=== PATIENT | male | born 1980 | race Caucasian/White ===

== ENCOUNTER 2018-04-02 03:24 | Day surgery (SDC) | payer SELFPAY ==
[2018-04-02] MEDS ORDERED: Lactated Ringers 1,000 ML IV SCH ×3 (04:15→06:45)
[2018-04-02] MEDS: cefOXitin 2 GM in Premix Bag 1 BAG IV ONE ×2 (04:20→04:44)
--- NOTE | 2018-04-02 04:34 | PCM.SN ---
- Free Text/Narrative Note: pt seen, chart reviewed; appendicitis, to surgery, rb dw pt re bleeding/ infection/damage to nearby organs/postop course; pt concurred and proceed; [id number]
[2018-04-02] MEDS ORDERED: diphenhydrAMINE 50 MG/ML SDV ONE (04:37)
[2018-04-02] MEDS ORDERED: Dexamethasone 4 MG/ML 5 ML MDV ONE (04:38)
[2018-04-02] MEDS ORDERED: Ondansetron 4 MG/2 ML SDV ONE (04:38)
[2018-04-02] MEDS ORDERED: Phenylephrine 1% 10 MG/ML SDV ONE (04:38)
[2018-04-02] MEDS ORDERED: Propofol 200 MG/20 ML SDV ONE (04:38)
[2018-04-02] MEDS ORDERED: fentaNYL 250 MCG/5 ML SDV ONE (04:38)
[2018-04-02] MEDS ORDERED: Midazolam 1 MG/ML 2 ML SDV ONE (04:38)
[2018-04-02] MEDS ORDERED: Sodium Chloride 0.9% 20 ML ONE (04:39)
[2018-04-02] MEDS ORDERED: ceFAZolin 1 GM Vial ONE ×2 (04:39)
[2018-04-02] MEDS ORDERED: Rocuronium 10 MG/ML 10 ML Syringe ONE (04:40)
[2018-04-02] MEDS ORDERED: Bupivacaine 0.25%/EPINEPHrine 1:200,000 10 ML SDV ONE ×2 (04:44→04:46)
[2018-04-02] MEDS ORDERED: HYDROmorphone 2 MG/ML SDV IVPUSH PRN (05:48)
--- NOTE | 2018-04-02 05:48 | PCM.PREANE ---
Preanesthetic Assessment - Procedure Proposed Procedure: for lap appy - Anesthesia/Transfusion/Family Hx Anesthesia History: No Prior Anesthesia Family History of Anesthesia Reaction: No - Review of Systems General: No Symptoms, Fatigue (on alex per ) Pulmonary: No Symptoms (smokes 1=2 ppd), Other (snores==n) Cardiovascular: No Symptoms Gastrointestinal: No Symptoms Neurological: No Symptoms - Physical Assessment NPO Status Date: 04/01/18 NPO Status Time: 18:00 (water at 0130) Pulse: 95 O2 Sat by Pulse Oximetry: 95 Respiratory Rate: 17 Blood Pressure: 116/71 Vital Signs: Last Vital Signs Temp 36.2 C 04/02/18 03:31 Pulse 76 04/02/18 04:32 Resp 17 04/02/18 04:32 BP 122/80 04/02/18 04:32 Pulse Ox 97 04/02/18 04:32 Height: 1.83 m Weight: 104.326 kg ASA Class: 2E Mental Status: Alert & Oriented x3 Airway Class: Mallampati = 2 Dentition: Reports: Normal Dentition Thyro-Mental Finger Breadths: 2 Mouth Opening Finger Breadths: 3 (well trimmed estrella) ROM/Head Extension: Full Lungs: Clear to Auscultation, Normal Respiratory Effort Cardiovascular: Regular Rate, Regular Rhythm - Allergies Allergies/Adverse Reactions: Allergies Allergy/AdvReac Type Severity Reaction Status Date / Time No Known Allergies Allergy Verified 04/02/18 03:31 - Blood Blood Available: No - Anesthesia Plan Pre-Op Medication Ordered: None - Acknowledgements Anesthesia Type Planned: General Anesthesia (ga discussed with patient and . All questionsn answerwed.consent signed) Pt an Appropriate Candidate for the Planned Anesthesia: Yes Alternatives and Risks of Anesthesia Discussed w Pt/Guardian: Yes Pt/Guardian Understands and Agrees with Anesthesia Plan: Yes PreAnesthesia Questionnaire HEENT History: Reports: None Cardiovascular History: Reports: None Respiratory History: Reports: None Gastrointestinal History: Reports: None Genitourinary History: Reports: None Musculoskeletal History: Reports: None Neurological History: Reports: None Psychiatric History: Reports: None Endocrine/Metabolic History: Reports: None Hematologic History: Reports: None Immunologic History: Reports: None Oncologic (Cancer) History: Reports: None Dermatologic History: Reports: None - Infectious Disease History Infectious Disease History: Reports: None - Past Surgical History Head Surgeries/Procedures: Reports: None - SUBSTANCE USE Smoking Status *Q: Current Every Day Smoker Recreational Drug Use History: Yes Recreational Drug Type: Reports: Marijuana/Hashish - HOME MEDS Home Medications: Home Meds . [No Known Home Meds] 04/02/18 [History] - CURRENT (IN HOUSE) MEDS Current Meds: Current Medications Lactated Ringer's (Ringers, Lactated) 1,000 mls @ 150 mls/hr IV ASDIRECTED [facility] Last Admin: 04/02/18 04:20 Dose: 150 mls/hr Discontinued Medications Bupivacaine HCl/Epinephrine Bitart (Marcaine 0.25%/Epinephrine 1:200,000) Confirm Administered Dose 10 ml .ROUTE .STK-MED ONE Stop: 04/02/18 04:45 Bupivacaine HCl/Epinephrine Bitart (Marcaine 0.25%/Epinephrine 1:200,000) Confirm Administered Dose 10 ml .ROUTE .STK-MED ONE Stop: 04/02/18 04:47 Cefazolin Sodium (Ancef) Confirm Administered Dose 1 gm .ROUTE .STK-MED ONE Stop: 04/02/18 04:40 Cefazolin Sodium (Ancef) Confirm Administered Dose 1 gm .ROUTE .STK-MED ONE Stop: 04/02/18 04:40 Dexamethasone (Dexamethasone) Confirm Administered Dose 20 mg .ROUTE .STK-MED ONE Stop: 04/02/18 04:39 Diphenhydramine HCl (Benadryl) Confirm Administered Dose 50 mg .ROUTE .STK-MED ONE Stop: 04/02/18 04:38 Fentanyl (Sublimaze) Confirm Administered Dose 250 mcg .ROUTE .STK-MED ONE Stop: 04/02/18 04:39 Cefoxitin Sodium 2 gm/ Premix 50 mls @ 100 mls/hr IV ONETIME ONE Stop: 04/02/18 04:36 Last Admin: 04/02/18 04:44 Dose: 100 mls/hr Lidocaine HCl (Xylocaine-Mpf 1%) Confirm Administered Dose 5 mls @ as directed .ROUTE .STK-MED ONE Stop: 04/02/18 04:38 Sodium Chloride (Normal Saline) Confirm Administered Dose 20 mls @ as directed .ROUTE .STK-MED ONE Stop: 04/02/18 04:40 Midazolam HCl (Versed 1 Mg/Ml) Confirm Administered Dose 2 mg .ROUTE .STK-MED ONE Stop: 04/02/18 04:39 Ondansetron HCl (Zofran) Confirm Administered Dose 4 mg .ROUTE .STK-MED ONE Stop: 04/02/18 04:39 Phenylephrine HCl (Adonay-Synephrine) Confirm Administered Dose 10 mg .ROUTE .STK- MED ONE Stop: 04/02/18 04:39 Propofol (Diprivan 20 Ml) Confirm Administered Dose 200 mg .ROUTE .STK-MED ONE Stop: 04/02/18 04:39 Rocuronium [place] (Zemuron) Confirm Administered Dose 100 mg .ROUTE .STK-MED ONE Stop: 04/02/18 04:41
[2018-04-02] MEDS ORDERED: Ondansetron 4 MG/2 ML SDV IVPUSH SCH (06:00)
[2018-04-02] MEDS ORDERED: Meperidine PF 25 MG/ML Syringe IVPUSH SCH (06:00)
--- NOTE | 2018-04-02 06:30 | PCM.OPNOTE ---
- General Post-Op/Procedure Note Date of Surgery/Procedure: 04/02/18 Operative Procedure(s): 1) lap appendectomy. 2) biopsy extra lumen r colon tissues Findings: appendix is very dilated, close to 10 mm, induration, hyperemic, with appendicolith, cw acute appendicitis, gross perf not observed; [id number] Pre Op Diagnosis: acute appendicitis Post-Op Diagnosis: Same Anesthesia Technique: General ET Tube Primary Surgeon: Case Levine Pathology: 1) extra lumen r colon tissue 2) appendix Complications: None Condition: Fair Free Text/Narrative:: Intake & Output 04/01/18 04/01/18 04/02/18 14:59 22:59 06:59 Output Total 150 Balance -150
[2018-04-02] MEDS ORDERED: Acetaminophen/oxyCODONE 325-5 MG Tab PO PRN (06:33)
[2018-04-02] MEDS ORDERED: Morphine 2 MG/ML Syringe IVPUSH PRN (06:33)
[2018-04-02] MEDS ORDERED: Ondansetron 4 MG/2 ML SDV IVPUSH PRN (06:33)
--- NOTE | 2018-04-02 06:41 | HP ---
DATE OF : 1980 PRIMARY CARE PHYSICIAN: None PCP This is a transfer from [place], Kimo is the provider who called and asked for transfer for acute appendicitis. HISTORY OF PRESENT ILLNESS: The patient is a 38-year-old gentleman, complaining of a 12-hour history of acute onset of periumbilical pain, subsequently migrated to the right lower quadrant. Pain intensified and he sought help in the emergency room at [facility] and got a CAT scan. CAT scan shows a mildly dilated appendix, and the radiologist did not call it appendicitis, and this information is not volunteered by the Kimo of the [facility] who asked for transfer because of acute appendicitis. The patient denied prior episode. Denied nausea, vomiting, fever, chills, or diarrhea, and the pain is in the right lower quadrant. PAST MEDICAL HISTORY: Denied diabetic, NM, CVA, hypertension. PAST SURGICAL HISTORY: None. ALLERGIES: Please refer to nursing for details. MEDICATION: Please refer to nursing for details. FAMILY HISTORY: Noncontributory. SOCIAL HISTORY: The patient is a current smoker. Denies alcohol use. PHYSICAL EXAMINATION: GENERAL: A very pleasant gentleman, in no acute distress. HEENT: Normocephalic and atraumatic. Sclerae anicteric. LUNGS: Clear to auscultation. HEART: Regular rate and rhythm. ABDOMEN: Soft and nondistended. No pulsating tender midline abdominal structure. Exquisite tenderness on the right lower quadrant. No rebound tenderness. Positive Rovsing sign. LABORATORY VALUE: At outside facility. White count was 21. CAT scan shows mildly dilated appendix, but no periappendiceal inflammation, and there is some free fluid in the lumen of the appendix and also appendicolith. IMPRESSION: Appendicolith and right lower quadrant pain. The gentleman probably will benefit to have the appendix removed, and risks and benefits discussed with the patient including bleeding, infection, and damage to nearby organ and postop course. The patient concurred to proceed as planned. We will start IV fluids and give Mefoxin 2 g IV and get a consent and proceed with surgical plan. The part of the CT reading does not call it acute appendicitis and the information is not warranted to the accepting doctor. The patient clinically does have a clinical picture of acute appendicitis. MARY / ADAM /[id number]
--- NOTE | 2018-04-02 07:18 | PCM.POSTAN ---
POST ANESTHESIA ASSESSMENT - MENTAL STATUS Mental Status: Alert, Oriented - RESPIRATORY Respiratory Status: Respiratory Rate WNL, Airway Patent, O2 Saturation Stable - CARDIOVASCULAR CV Status: Pulse Rate WNL, Blood Pressure Stable - GASTROINTESTINAL GI Status: No Symptoms - PAIN Pain Score: 1 - POST OP HYDRATION Hydration Status: Adequate & Stable
--- NOTE | 2018-04-02 07:26 | OR ---
SURGEON: Case Levine MD DATE OF PROCEDURE: 04/02/2018 PREOPERATIVE DIAGNOSIS: Acute appendicitis. POSTOPERATIVE DIAGNOSIS: Acute appendicitis. PROCEDURE PERFORMED: Laparoscopic appendectomy. lap bx of extra lumen colon tissue COMPLICATION: None. FINDINGS: Appendix is very dilated before the amputation. This almost looked like 9 to 10 mm, hyperemic, and indurated and with several appendicoliths. Gross perforation is not observed. DESCRIPTION OF PROCEDURE: The patient was taken to the operating room and placed in the supine position. Following induction of general endotracheal anesthesia, the patient's abdomen was prepped and draped in the sterile fashion. A time-out has been called. The patient was identified. The procedure was identified. The antibiotics were identified. The procedure then proceeded. The abdomen was prepped and draped in a standard fashion. After assessment of appropriate landmarks, a 12 millimeter trocar was inserted supraumbilically using Optiview and pneumoperitoneum was then achieved. This was followed with placement of 5 millimeter port in the right upper quadrant and another 5 millimeter port infraumbilically. The camera was inserted supraumbilical site and two laparoscopic Padmini retractors were then inserted through the other two sites. Following the cecum, the appendix was located. The appendix was then lifted up, and using a GI stapler the appendix was amputated at the base. And using the GI stapler, the mesoappendix was then amputated. The appendix was retrieved by an endoscopic bag and sent for pathologist. there is a small tissue outside lumen of R colon, like a small lymph node, this is removed and sent for path. This was then followed by re-insertion of the camera to examine the staple line, and hemostasis. The trocars were then removed. The umbilical site was closed with 2-0 Vicryl deep stitch and 4 -0 Vicryl and Dermabond; the other 2 5 mm port sites were closed with 4-0 Vicryl and Dermabond. The patient was then awakened, extubated, and transferred to the recovery room in hemodynamically stable condition. Prior to closing, sponge count and instrument count was correct. Dr. Levine was present throughout the whole procedure. As always, thank you for the kind referral. MARY / ADAM /[id number] MTDD
--- NOTE | 2018-04-02 09:09 | PCM48HPAN ---
Post Anesthesia Note - EVALUATION WITHIN 48HRS OF ANESTHETIC Vital Signs in Normal Range: Yes Patient Participated in Evaluation: Yes Respiratory Function Stable: Yes Airway Patent: Yes Cardiovascular Function Stable: Yes Hydration Status Stable: Yes Pain Control Satisfactory: Yes Nausea and Vomiting Control Satisfactory: Yes Mental Status Recovered: Yes Pulse Rate: 95 SaO2: 97 Resp Rate: 19 Blood Pressure: 110/75 - COMMENTS/OBSERVATIONS Free Text/Narrative:: minimal discomfort. No nausea. Good postop phase II recovery. present
== END 2018-04-02 13:19 | disposition home or self-care (01) ==
LOC: MW.ED 03:24 → MW.SDS 04:02 → MW.MS 07:15 → MW.SDS 13:19
PROVIDERS: ATTEND Surgery
DX: K35.80 Unspecified acute appendicitis (principal); K52.9 Noninfective gastroenteritis and colitis, unspecified; F17.210 Nicotine dependence, cigarettes, uncomplicated
CPT/HCPCS: 44970; 49321; 96365; 99285; A9270; J0690; J0694; J1100; J1200; J2250; J2370; J2405; J2704; J3010; J3490; J7120; 00840; 88304